=== PATIENT | male | born 1980 | race Two or more races ===

== ENCOUNTER 2024-12-22 16:11 | Emergency (ER) | payer OTHER ==
[~2024-12-22] VITALS: Ht 167.6 cm; Wt 56.2 kg
[2024-12-22] MEDS ORDERED: CEFTRIAXONE SODIUM 1,000 MG VIAL IV ONE (18:30)
[2024-12-22] MEDS ORDERED: 0.9 % SODIUM CHLORIDE 1,000 ML IV ONE (18:45)
[2024-12-22] MEDS ORDERED: DIPHTH,PERTUSS(ACELL),TET VAC 0.5 ML SYRINGE IM ONE (18:55)
[2024-12-22] MEDS ORDERED: CEFTRIAXONE SODIUM 1,000 MG VIAL ONE ×2 (18:55→19:20)
[2024-12-22] MEDS ORDERED: TETANUS & DIPHTHERIA TOX,ADULT 0.5 ML VIAL IM ONE (19:00)
[2024-12-22] MEDS ORDERED: HYDROGEN PEROXIDE 473 ML BOTTLE TOP ONE (19:14)
[2024-12-22 19:54] LABS: BASO % 0.1 % (0.1-1.2); EOS # 0.03 (0.04-0.54); EOS % 0.3 % (0.7-7.0); LYMPH # 2.13 (1.18-3.74); LYMPH % 19.2 % (19.3-53.1); MEAN PLATELET VOLUME 11.20 fl (9.4-12.4); MONO # 0.86 (0.24-0.82); MONO % 7.8 % (4.7-12.5); NEUT # 8.01 (1.56-6.13); NEUT % 72.2 % (34.0-71.1); RED CELL DISTRIBUTION WIDTH 12.0 % (11.6-14.4)
[2024-12-22 20:35] LABS: ALT/SGPT 48.0 U/L (12-78); AST/SGOT 53.0 U/L (15-37); BILIRUBIN TOTAL 1.58 mg/dL (0.3-1.2); BUN CREA RATIO 9.0 (7.0-25.0); CREATININE SERUM 1.7 mg/dL (0.70-1.30); GFR 44.42; GLOBULINA 4.3 G/DL (2.4-3.5); GLUCOSE FASTING 114.0 mg/dL (65-100); OSMOLALITY SERUM 267.0 MOSM/KG (275-295)
[2024-12-22] MEDS ORDERED: PEPCID AC20 MG PO (21:08)
[2024-12-22] MEDS ORDERED: CEFUROXIME500 MG PO (21:08)
== END 2024-12-22 21:22 | disposition home or self-care (01) ==
LOC: ER 19:06
PROVIDERS: General Practice
DX: S00.01XA Abrasion of scalp, initial encounter (principal); W18.39XA Other fall on same level, initial encounter; Y93.89 Activity, other specified; Y92.89 Other specified places as the place of occurrence of the external cause; Y99.9 Unspecified external cause status; R56.9 Unspecified convulsions